=== PATIENT | female | born 1965 | race Caucasian/White ===

== ENCOUNTER 2016-11-02 11:20 | Day surgery (SDC) | payer BC, SELFPAY ==
[~2016-11-02] VITALS: Ht 165.1 cm; Wt 101.2 kg
[2016-11-02] MEDS ORDERED: ZOLOFT25 MG PO (12:11)
[2016-11-02] MEDS ORDERED: LISINOPRIL10 MG PO (12:11)
[2016-11-02] MEDS ORDERED: FISH OIL 10001000 MG PO (12:12)
[2016-11-02] MEDS ORDERED: BENADRYL 25MG C25 MG PO (12:12)
[2016-11-02] MEDS ORDERED: COREG 3.125M3.125 MG PO (12:13)
[2016-11-02] MEDS ORDERED: CLARITIN10 MG PO (12:13)
[2016-11-02] MEDS ORDERED: IBUPROFEN800 MG PO (12:14)
[2016-11-02] MEDS ORDERED: NEXIUM20 MG PO (12:14)
[2016-11-02] MEDS ORDERED: ZOCOR40 MG PO (12:14)
[2016-11-02] MEDS ORDERED: HYDROCHLOROTHIA25 MG PO (12:15)
[2016-11-02] MEDS ORDERED: IPRAT-ALBUT 0.5-3 ML INH (12:16)
[2016-11-02] MEDS ORDERED: NORCO 7.5-3251 EACH PO (12:16)
[2016-11-02 12:46] LABS: HEMOGLOBIN 12.8 gm/dl (12.3-15.3); RED BLOOD COUNT 4.43 M/UL (4.00-5.10); WHITE BLOOD COUNT 12.8 K/UL (4.5-11.0)
[2016-11-02 13:06] LABS: BUN/CREATININE RATIO 22 (0-10)
[2016-11-03 07:00] LABS: WHITE BLOOD COUNT 13.1 K/UL (4.5-11.0)
[2016-11-03 07:04] LABS: HEMOGLOBIN 10.4 gm/dl (12.3-15.3); RED BLOOD COUNT 3.57 M/UL (4.00-5.10)
[2016-11-03 07:24] LABS: BUN/CREATININE RATIO 17 (0-10)
[2016-11-03] MEDS ORDERED: NORCO 7.5-3251 EACH PO (12:18)
== END 2016-11-03 14:07 | disposition home or self-care (01) ==
LOC: OR 11:20 → M/S 17:34 → OR 11-03 14:07
PROVIDERS: Orthopaedic Surgery
PROC: 0PSD04Z Reposition Left Humeral Head with Internal Fixation Device, Open Approach (ICD-10-PCS; principal; 2016-11-02 16:45)
DX: S42.202A Unspecified fracture of upper end of left humerus, initial encounter for closed fracture (principal); I10 Essential (primary) hypertension; E78.5 Hyperlipidemia, unspecified; F41.9 Anxiety disorder, unspecified; F32.9 Major depressive disorder, single episode, unspecified; K21.9 Gastro-esophageal reflux disease without esophagitis; G43.909 Migraine, unspecified, not intractable, without status migrainosus; M19.90 Unspecified osteoarthritis, unspecified site; Z86.2 Personal history of diseases of the blood and blood-forming organs and certain disorders involving the immune mechanism; Z87.01 Personal history of pneumonia (recurrent); Z88.1 Allergy status to other antibiotic agents; Z88.8 Allergy status to other drugs, medicaments and biological substances; Z82.49 Family history of ischemic heart disease and other diseases of the circulatory system; Z82.5 Family history of asthma and other chronic lower respiratory diseases; Z82.3 Family history of stroke; W01.0XXA Fall on same level from slipping, tripping and stumbling without subsequent striking against object, initial encounter
CPT/HCPCS: 73030; 76000; 80048; 85025; 85027; 94640; 94664; C1713; J0690; J1100; J2250; J2270; J2710; J2795; J3010; J7120; Q0162

== ENCOUNTER → 2017-01-01 | Day surgery (SDC) | payer BC ==
[~2017-01-01] MED LIST: BENADRYL 25MG C25 MG PO; CLARITIN10 MG PO; COREG 3.125M3.125 MG PO; FISH OIL 10001000 MG PO; HYDROCHLOROTHIA25 MG PO; IBUPROFEN800 MG PO; IPRAT-ALBUT 0.5-3 ML INH; LISINOPRIL10 MG PO; NEXIUM20 MG PO; NORCO 7.5-3251 EACH PO; ZOCOR40 MG PO; ZOLOFT25 MG PO
[2017-01-01 07:05] LABS: BUN/CREATININE RATIO 21 (0-10)
[2017-01-01 07:54] LABS: HEMOGLOBIN 12.4 gm/dl (12.3-15.3); RED BLOOD COUNT 4.41 M/UL (4.00-5.10); WHITE BLOOD COUNT 9.3 K/UL (4.5-11.0)
== END | disposition home or self-care (01) ==
LOC: OR 05:57
PROVIDERS: Orthopaedic Surgery
PROC: 0LN80ZZ Release Left Hand Tendon, Open Approach (ICD-10-PCS; principal; 2017-01-01 07:45)
DX: M65.332 Trigger finger, left middle finger (principal); I10 Essential (primary) hypertension; M19.90 Unspecified osteoarthritis, unspecified site; K21.9 Gastro-esophageal reflux disease without esophagitis; G47.30 Sleep apnea, unspecified; E78.5 Hyperlipidemia, unspecified; Z86.718 Personal history of other venous thrombosis and embolism; Z90.49 Acquired absence of other specified parts of digestive tract; Z79.1 Long term (current) use of non-steroidal anti-inflammatories (NSAID); Z79.899 Other long term (current) drug therapy; Z88.8 Allergy status to other drugs, medicaments and biological substances; Z88.1 Allergy status to other antibiotic agents; Z86.69 Personal history of other diseases of the nervous system and sense organs
CPT/HCPCS: 80048; 85025; J1100; J2250; J2765; J3010; J7030; J7120